=== PATIENT | female | born 1955 | race Caucasian/White ===

== ENCOUNTER → 2016-10-05 | Day surgery (SDC) | payer OTHER ==
[~2016-10-05] MED LIST: ACETAMINOPHEN 1000 MG/100 ML VIAL IV ONE; BALANCED SALT SOLN OPHT IRRIG 15 ML BTL ONE; LACTATED RINGER'S 1000 ML INJ 1,000 ML ONE; LIDOCAINE 1%/EPINEPHrine 1:100,000 SOLN 20 ML VIAL ONE; LIDOCAINE 2%/EPINEPHrine PF 1:200,000 20ML SDV ONE; MIDAZOLAM HCL 2 MG/2 ML VIAL ONE; NEOMYCIN/POLYMYXIN/BACITRACIN OINT 15 GM TUBE ONE; NEOMYCIN/POLYMYXIN/HYDROCORT OTIC SUSP 10 ML BTL ONE; ONDANSETRON HCL 4 MG/2 ML VIAL IV PUSH ONE; PROPOFOL 200 MG/20 ML AMP IV ONE; ceFAZolin INJ 1,000 MG VIAL ONE
--- NOTE | 2016-10-05 12:18 | TN ---
cc: MONTRELL BAHENA M.D. DATE OF SURGERY 10/05/2016 PREOPERATIVE DIAGNOSIS Facial aging. 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 PROCEDURE Upper and lower blepharoplasty, lateral lower lid canthopexy. Cervicofacial rhytidectomy. SURGEON Montrell Bahena MD ANESTHESIA LMA general. Diluted lidocaine in which 250 cc of saline and 30 cc of 1% lidocaine and epinephrine was mixed. Out of that I utilized 160. PROCEDURE She was properly consented, marked, properly anesthetized. The skin was sterilized with Microcyn and sterile draping was applied. Attention was directed to the eyelid area where the previous markings in the skin and the upper eyelid was removed. Exploration of the inner upper pocket of fat was done removing a conservative amount. with this I proceeded to perform closure of this with multiple layers of 6-0 Monocryl suture and a running 6-0 Prolene was utilized. I proceeded to perform also a canthopexy. That was done after opening the lower eyelid, utilizing a myocutaneous flap by leaving 2-3 mm of orbicularis oculi muscle. I then proceeded to perform the proper release of the orbital septum and with distribution of the fat pads were done by releasing also on the tear throw area. I anchored the fat with 6-0 Monocryl suture. Closure of the suture line was done to the lower eyelid utilizing a quilting type 6-0 Monocryl suture and underlying 6-0 [place] and Prolene. The contralateral side was approached exactly in the same manner. With this I proceeded to perform the approach to submental area where defatting of the pre-platysma and retro-platysma area was done. Plication of the platysma muscle was done utilizing 4-0 Mersilene suture and myotomy was done on the distal aspect of the platysmal muscle. The pre and postauricular area was properly released at this point proximal to the nasolabial fold and communicating with the neck incision. SMAS plication was done utilizing a running locking 4-0 Mersilene suture and lateral platysmaplasty was done utilizing the same suture material. At this point, removal of the excess skin was done and the closure of the post and preauricular area respectively area was done as follows - 3-0 Monocryl suture and surgical samuel and 5-0 Monocryl suture and 5-0 fast-absorbing gut. The submental incision was closed utilizing 3-0 Monocryl suture and the dermis with subcu. Overall the patient tolerated the procedure well. She was awakened, extubated in the operating room, transferred back to the postanesthesia care unit in stable condition. No complications appreciated and the patient tolerated the procedure fairly well. MD MIRTHA Segovia/WILLIAMS /11:35 AM /12:03 PM
== END | disposition home or self-care (01) ==
LOC: ESDC 06:08
PROVIDERS: ATTEND Plastic Surgery
DX: Z41.1 Encounter for cosmetic surgery (principal)
CPT/HCPCS: 00103; 00300; 15820; 15822; 15828; 21282; J0131; J0690; J2250; J2405; J3010; J7120